=== PATIENT | male | born 1985 | race Caucasian/White ===

== ENCOUNTER 2017-03-16 17:36 | Emergency (ER) | payer SELFPAY ==
[~2017-03-16] VITALS: Ht 172.7 cm; Wt 90.7 kg
[2017-03-16] MEDS ORDERED: CEFADROXIL500 M1 PO (18:18)
== END 2017-03-16 20:07 | disposition home or self-care (01) ==
LOC: ED 17:36
DX: S71.111A Laceration without foreign body, right thigh, initial encounter (principal); F17.200 Nicotine dependence, unspecified, uncomplicated; W27.8XXA Contact with other nonpowered hand tool, initial encounter; Y93.89 Activity, other specified; Y92.9 Unspecified place or not applicable; Y99.9 Unspecified external cause status